=== PATIENT | female | born 1930 | race Caucasian/White ===

== ENCOUNTER 2018-05-17 17:39 | Emergency (ER) | payer OTHER ==
[~2018-05-17] VITALS: Ht 149.9 cm; Wt 47.6 kg
[~2018-05-17 17:39] MED LIST: CARDURA1 MG; CRESTOR10 MG; LEVSIN/SL0.125 MG SL; MIRALAX510 GM PO; NORVASC5 MG; VITAMIN D31000 UNI1; WELLBUTRIN XL150 MG; ZESTRIL10 M1
== END 2018-05-17 20:58 | disposition home or self-care (01) ==
LOC: ER 17:39
DX: K59.09 Other constipation (principal)

== ENCOUNTER 2018-05-28 14:11 | Emergency (ER) | payer OTHER ==
[~2018-05-28] VITALS: Ht 149.9 cm; Wt 47.6 kg
== END 2018-05-28 18:53 | disposition home or self-care (01) ==
LOC: ER 14:11
DX: K59.09 Other constipation (principal); R10.84 Generalized abdominal pain